=== PATIENT | female | born 2000 | race Two or more races ===

== ENCOUNTER 2024-04-27 21:17 | Emergency (ER) | payer SELFPAY ==
[~2024-04-27] VITALS: Ht 162.6 cm; Wt 70.0 kg
[2024-04-27 21:26] VITALS: TEMP 98.3
[2024-04-27] MEDS: HYDROCODONE/ACETAMINOPHEN 5-325 MG TABLET PO ONE (23:33)
[2024-04-27] MEDS: IBUPROFEN 600 MG TABLET PO ONE (23:33)
[2024-04-27] MEDS: BACITRACIN 0.9 GM PACKET OINTMENT TP ONE (23:34)
[2024-04-27] MEDS ORDERED: BACI28.410 TP (23:52)
[2024-04-27] MEDS ORDERED: IBUP-1554 PO (23:52)
[2024-04-27] MEDS ORDERED: HYDR-4072 PO (23:53)
[2024-04-28 00:16] VITALS: BP 132/86; PULSE 78; RESP 16; O2SAT 99
== END 2024-04-28 00:18 | disposition home or self-care (01) ==
LOC: EMS 21:17
DX: S61.012A Laceration without foreign body of left thumb without damage to nail, initial encounter (principal); W26.8XXA Contact with other sharp object(s), not elsewhere classified, initial encounter; Y93.89 Activity, other specified; Y92.89 Other specified places as the place of occurrence of the external cause; Y99.8 Other external cause status
CPT/HCPCS: 99284; Z7502; Z7610